=== PATIENT | male | born 1940 | race Caucasian/White ===

== ENCOUNTER 2017-03-11 00:07 | Inpatient (IN) | payer OTHER ==
[~2017-03-11] VITALS: Ht 167.6 cm; Wt 70.7 kg
[2017-03-11] VITALS (27 sets, daily range): BP systolic 103–144; BP diastolic 61–83
[~2017-03-11 00:07] MED LIST: AMITRIPTYLINE H25 MG PO; ATIVAN1 MG PO; Elavil PO; LOTREL 5/201 CAPSULE PO; SERZONE150 MG PO
[2017-03-11 00:37] LABS: EOSINOPHIL (%) 1.1 % (0-5); EOSINOPHIL COUNT 0.1 K/uL (0-0.3); HEMATOCRIT 47.9 % (38.0-50.0); IMMATURE GRANULOCYTE (%) 0.3 % (0.0-0.7); INSTRUMENT ABS NEUTROPHIL CT 7.8 K/uL; LYMPHOCYTE COUNT 3.8 K/uL (1.0-2.8); MCH 30.5 PG (29.0-34.0); MCHC 34.9 G/DL (30.0-36.0); MCV 87.4 FL (86-99); MEAN PLAT.VOLUME 9.5 uM^3 (9.0-12.4); MONOCYTE (%) 5.1 % (3-12); MONOCYTE COUNT 0.6 K/uL (0-0.8); NEUTROPHIL (%) 62.8 % (45-76); NEUTROPHIL COUNT 7.8 K/uL (1.8-6.4); PLATELET COUNT 200 K/uL (156-360); RBC DIS.WIDTH-CV 12.4 % (11.8-14.6); RBC DIS.WIDTH-SD 39.8 % (39-53); RED BLOOD COUNT 5.48 M/uL (4.00-5.50); WHITE BLOOD COUNT 12.4 K/uL (4.1-10.2)
[2017-03-11] MEDS ORDERED: NEFAZODONE HCL200 MG PO (00:42)
[2017-03-11] MEDS ORDERED: ELAVIL50 MG PO (00:43)
[2017-03-11] MEDS ORDERED: ONE-A-DAY ESSE1 EAC1 PO (00:43)
[2017-03-11 00:50] LABS: AMYLASE 61 IU/L (1-118); CHLORIDE 101 mEq/L (99-109); SODIUM 134 mEq/L (136-147)
[2017-03-11 00:51] LABS: GLUCOSE 228 mg/dL (70-99)
[2017-03-11 00:53] LABS: ANION GAP 11 MEQ/L (2-14); PROTHROMBIN TIME 10.6 (9.2-11.2); PTT 26.4 (25-32)
[2017-03-11 00:55] LABS: GFR ESTIMATE (CALCULATED) > 59 mL/min/; SERUM ETHYL ALCOHOL < 10 mg/dL
[2017-03-11 00:56] LABS: UREA NITROGEN (BUN) 8 mg/dL (9-23)
[2017-03-11 00:58] LABS: LIPASE 29 U/L (1.0-51.0)
[2017-03-11 01:01] LABS: TROP-I INTERPRETATION POSITIVE; TROPONIN-I 1.02 ng/mL (0.0-0.30)
[2017-03-11 03:49] LABS: METH RESISTANT S AUREUS PCR NEGATIVE (NEGATIVE)
[2017-03-11 03:53] LABS: PROBE CHECK PASS; SPECIMEN PROCESSING CONTROL PASS
[2017-03-11 10:43] LABS: TROP-I INTERPRETATION POSITIVE; TROPONIN-I 44.63 ng/mL (0.0-0.30)
[2017-03-11 12:52] LABS: TROP-I INTERPRETATION POSITIVE; TROPONIN-I 48.76 ng/mL (0.0-0.30)
[2017-03-11 18:11] LABS: CHLORIDE 105 mEq/L (99-109); POTASSIUM 3.6 mEq/L (3.7-5.4); SODIUM 136 mEq/L (136-147)
[2017-03-11 18:13] LABS: GLUCOSE 225 mg/dL (70-99)
[2017-03-11 18:15] LABS: ANION GAP 8 MEQ/L (2-14)
[2017-03-11 18:17] LABS: GFR ESTIMATE (CALCULATED) > 59 mL/min/
[2017-03-11 18:18] LABS: UREA NITROGEN (BUN) 9 mg/dL (9-23)
[2017-03-11 18:24] LABS: TROP-I INTERPRETATION POSITIVE; TROPONIN-I 28.43 ng/mL (0.0-0.30)
[2017-03-12] VITALS (17 sets, daily range): BP systolic 0–138; BP diastolic 0–89
[2017-03-12 01:05] LABS: TROP-I INTERPRETATION POSITIVE; TROPONIN-I 22.18 ng/mL (0.0-0.30)
[2017-03-12 05:29] LABS: CHLORIDE 108 mEq/L (99-109); POTASSIUM 4.2 mEq/L (3.7-5.4); SODIUM 141 mEq/L (136-147)
[2017-03-12 05:32] LABS: ANION GAP 10 MEQ/L (2-14)
[2017-03-12 05:34] LABS: GFR ESTIMATE (CALCULATED) > 59 mL/min/
[2017-03-12 05:35] LABS: UREA NITROGEN (BUN) 8 mg/dL (9-23)
[2017-03-12 05:37] LABS: GLUCOSE 120 mg/dL (70-99)
[2017-03-12 07:22] LABS: HDL CHOLESTEROL 33 MG/DL (Desirable>=40); LDL CHOLESTEROL 149 mg/dL (Desirable<100); NON-HDL CHOLESTEROL 173 mg/dL (Desirable<160); SAMPLE HEMOLYSIS CHECK 0; SAMPLE ICTERIC CHECK 0; SAMPLE LIPEMIA CHECK 0; TOTAL CHOLESTEROL 206 mg/dL (Desirable<200); TRIGLYCERIDES 122 MG/DL (Normal: <150)
[2017-03-12 10:04] LABS: MAGNESIUM 2.3 mg/dl (1.3-2.7)
[2017-03-12] MEDS ORDERED: BRILINTA90 MG PO (14:06)
[2017-03-12] MEDS ORDERED: ASPIR-LOW81 MG PO (14:07)
[2017-03-12] MEDS ORDERED: LOPRESSOR50 MG PO (14:07)
[2017-03-12] MEDS ORDERED: PRAVASTATIN SOD40 MG PO (14:07)
== END 2017-03-12 15:33 | disposition home or self-care (01) | DRG 247 ==
LOC: EME 00:07 → CATH 00:51 → EME 00:51 → 2SOUTH 01:58 → 4WEST 02:27
PROVIDERS: Emergency Medicine; Internal Medicine Cardiovascular Disease
DX: I21.09 ST elevation (STEMI) myocardial infarction involving other coronary artery of anterior wall (principal); I25.10 Atherosclerotic heart disease of native coronary artery without angina pectoris; I10 Essential (primary) hypertension; F32.9 Major depressive disorder, single episode, unspecified; Z87.891 Personal history of nicotine dependence; E78.5 Hyperlipidemia, unspecified; F41.9 Anxiety disorder, unspecified
CPT/HCPCS: 71010; 80048; 80048 91; 80061; 81003; 82150; 83690; 83735; 84484; 85025; 85347; 85610; 85730; 86900; 86901; 87641; 93005; 94799; 99281; 99285; C1725; C1760; C1769; C1874; C1887; C1894; G0480; J0461; J1644; J2250; J2405; J3010; J3246; J7030; J7050

== ENCOUNTER 2017-05-09 12:34 | Emergency (ER) | payer OTHER ==
[~2017-05-09] VITALS: Ht 165.1 cm; Wt 68.6 kg
[~2017-05-09 12:34] MED LIST changes: +ASPIR-LOW81 MG PO; +BRILINTA90 MG PO; +ELAVIL50 MG PO; +LOPRESSOR50 MG PO; +NEFAZODONE HCL200 MG PO; +ONE-A-DAY ESSE1 EAC1 PO; +PRAVASTATIN SOD40 MG PO
[2017-05-09 13:50] VITALS: BP 107/64
== END 2017-05-09 13:53 | disposition home or self-care (01) ==
LOC: EME 12:34
PROC: 0HQ0XZZ Repair Scalp Skin, External Approach (ICD-10-PCS; principal; 2017-05-09)
DX: S01.01XA Laceration without foreign body of scalp, initial encounter (principal); W01.0XXA Fall on same level from slipping, tripping and stumbling without subsequent striking against object, initial encounter; Z87.891 Personal history of nicotine dependence; Z85.46 Personal history of malignant neoplasm of prostate; Z87.442 Personal history of urinary calculi; I10 Essential (primary) hypertension; Z98.61 Coronary angioplasty status
CPT/HCPCS: 99281; 99284

== ENCOUNTER 2017-05-09 16:41 | Emergency (ER) | payer OTHER ==
[~2017-05-09] VITALS: Ht 167.6 cm; Wt 68.6 kg
[2017-05-09 19:47] VITALS: BP 155/95
== END 2017-05-09 19:48 | disposition home or self-care (01) ==
LOC: EME 16:41
PROC: 0HQ0XZZ Repair Scalp Skin, External Approach (ICD-10-PCS; principal; 2017-05-09)
DX: S01.01XD Laceration without foreign body of scalp, subsequent encounter (principal); W01.190D Fall on same level from slipping, tripping and stumbling with subsequent striking against furniture, subsequent encounter; I10 Essential (primary) hypertension; Z87.442 Personal history of urinary calculi; Z90.49 Acquired absence of other specified parts of digestive tract; Z87.891 Personal history of nicotine dependence
CPT/HCPCS: 70450; 99281; 99284